=== PATIENT | female | born 1980 | race Caucasian/White ===

== ENCOUNTER → 2019-12-10 | Outpatient (CLI) | payer BC ==
--- NOTE | 2019-12-11 11:54 | MM ---
Reason for exam: screening (asymptomatic). Physical Findings: A clinical breast exam by your physician is recommended on an annual basis and results should be correlated with mammographic findings. MG 3D Screening Mammo W/Cad Bilateral CC and MLO view(s) were taken. The breast tissue is extremely dense which could obscure a lesion on mammography. There is no discrete abnormality. ASSESSMENT: Negative, BI-RAD 1 RECOMMENDATION: Routine screening mammogram of both breasts in 1 year.
== END | disposition home or self-care (01) ==
LOC: RADMAMWWP 10:53
PROVIDERS: ATTEND Obstetrics & Gynecology
DX: Z12.31 Encounter for screening mammogram for malignant neoplasm of breast (principal)
CPT/HCPCS: 77063; 77067

== ENCOUNTER → 2020-12-10 | Outpatient (CLI) | payer BC ==
--- NOTE | 2020-12-14 10:24 | MM ---
Reason for exam: screening (asymptomatic). Last mammogram was performed 1 year ago. Physical Findings: A clinical breast exam by your physician is recommended on an annual basis and results should be correlated with mammographic findings. MG 3D Screening Mammo W/Cad Bilateral CC and MLO view(s) were taken. Prior study comparison: December 10, 2019, bilateral MG 3d screening mammo w/cad. The breast tissue is extremely dense which could obscure a lesion on mammography. No significant changes when compared with prior studies. ASSESSMENT: Negative, BI-RAD 1 RECOMMENDATION: Routine screening mammogram of both breasts in 1 year. Patient should continue monthly self breast exams. A negative report should not preclude additional follow up of suspicious palpable abnormalities.
== END | disposition home or self-care (01) ==
LOC: RADMAMWWP 07:51
PROVIDERS: ATTEND Obstetrics & Gynecology
DX: Z12.31 Encounter for screening mammogram for malignant neoplasm of breast (principal)
CPT/HCPCS: 77063; 77067

== ENCOUNTER → 2021-12-26 | Outpatient (CLI) | payer BC ==
--- NOTE | 2021-12-26 15:52 | BD ---
EXAMINATION TYPE: Axial Bone Density DATE OF EXAM: 12/26/2021 COMPARISON: NONE CLINICAL HISTORY: 41 years year old Female. ICD-10 CODE: Z78.0 MENOPAUSAL STATE postmenopausal femal e Height: 63.5 IN Weight: 120 LBS FRAX RISK QUESTIONS: History of Fracture in Adulthood: RT WRIST AGE 17 RISK FACTORS HISTORY OF: History of Wrist Fracture: RT WRIST AGE 17 Active: YES MEDICATIONS: Additional Medications: TOPOMAX EXAM MEASUREMENTS: Bone mineral densitometry was performed using the [employer] System. Bone mineral density as measured about the Lumbar spine is: ----- L1-L4(G/cm2): 1.053 T Score Values are as follows: ----- L1: -1.4 ----- L2: -1.3 ----- L3: -1.2 ----- L4: -0.6 ----- L1-L4: -1.1 Bone mineral density BASELINE Bone mineral density about the R hip (g/cm2): 0.742 Bone mineral density about the L hip (g/cm2): 0.764 T Score values are as follows: -----R Neck: -2.1 -----L Neck: -2.0 -----R Total: -1.2 -----L Total: -1.3 Bone mineral density BASELINE FRAX%s: The graph provided illustrates a 6.1 chance for a major osteoporotic fx and a 1.5 chance for the hips probability for fx in 10 years time. IMPRESSION: Osteopenia (T Score between -2.5 and -1). There is slightly increased risk of fracture and the patient may be considered for treatment. Re-Screen 2-5 years. NOTE: T-SCORE=SD OF THE YOUNG ADULT MEAN.
--- NOTE | 2021-12-29 10:23 | MM ---
Reason for Exam: Screening (asymptomatic). Last mammogram was performed 1 year(s) and 1 month(s) ago. Patient History: Menarche at age 10. First Full-Term at age 23. Last menstrual period: 12/16/2021 Risk Values: Brenna 5 year model risk: 0.6%. NCI Lifetime model risk: 9.7%. Prior Study Comparison: 12/10/2019 Bilateral Screening Mammogram, [facility]. 12/10/2020 Bilateral Screening Mammogram, [facility]. Tissue Density: The breast tissue is extremely dense which could obscure a lesion on mammography. Findings: Analyzed By CAD. There is no suspicious group of microcalcifications or new suspicious mass in either breast. Overall Assessment: Negative, BI-RAD 1 Management: Screening Mammogram of both breasts in 1 year. A clinical breast exam by your physician is recommended on an annual basis and results should be correlated with mammographic findings. Electronically signed and approved by: Jerome Schuster DO
== END | disposition home or self-care (01) ==
LOC: RADMAMWWP 14:53
PROVIDERS: ATTEND Obstetrics & Gynecology
DX: Z12.31 Encounter for screening mammogram for malignant neoplasm of breast (principal); M85.89 Other specified disorders of bone density and structure, multiple sites; Z78.0 Asymptomatic menopausal state
CPT/HCPCS: 77063; 77067; 77080

== ENCOUNTER → 2022-09-04 | Outpatient (CLI) | payer BC ==
--- NOTE | 2022-09-04 12:53 | CA ---
Transthoracic Echo Report Name: Ave Bray Age: 41 Gender: F : 1980 Exam Date: 09/04/2022 11:31 Exam Location: [facility] Ht (in): 64 Wt (lb): 107 Ordering Physician: Ame Espitia MD Attending/Referring Phys: Ame Espitia MD Welding Estimator Lien Lee RDCS Procedure CPT: Indications: R07.9 R00.2 Cardiac Hx: Technical Quality: Excellent Contrast 1: Total Dose (mL): Contrast 2: Total Dose (mL): MEASUREMENTS (Male / Female) Normal Values 2D ECHO LV Diastolic Diameter PLAX 4.3 cm 4.2 - 5.9 / 3.9 - 5.3 cm LV Systolic Diameter PLAX 2.6 cm IVS Diastolic Thickness 0.9 cm 0.6 - 1.0 / 0.6 - 0.9 cm LVPW Diastolic Thickness 0.9 cm 0.6 - 1.0 / 0.6 - 0.9 cm LV Relative Wall Thickness 0.4 RV Internal Dim ED PLAX 2.5 cm LA Systolic Diameter LX 3.0 cm 3.0 - 4.0 / 2.7 - 3.8 cm LV Diastolic Volume MOD 4C 70.5 cm??? LV Systolic Volume MOD 4C 32.5 cm??? LV Ejection Fraction MOD 4C 53.9 % LV Diastolic Length 4C 7.7 cm LV Systolic Length 4C 6.4 cm LV Diastolic Volume MOD 2C 68.0 cm??? LV Systolic Volume MOD 2C 31.7 cm??? LV Ejection Fraction MOD 2C 53.4 % LV Diastolic Length 2C 6.7 cm LV Systolic Length 2C 5.7 cm LA Volume 42.4 cm??? 18 - 58 / 22 - 52 cm??? M-MODE Aortic Root Diameter MM 3.0 cm MV E Point Septal Separation 0.2 cm AV Cusp Separation MM 2.1 cm DOPPLER AV Peak Velocity 118.0 cm/s AV Peak Gradient 5.6 mmHg MV Area PHT 3.2 cm??? Mitral E Point Velocity 98.2 cm/s Mitral A Point Velocity 42.7 cm/s Mitral E to A Ratio 2.3 MV Deceleration Time 234.3 ms MV E' Velocity 13.0 cm/s Mitral E to MV E' Ratio 7.6 TR Peak Velocity 216.0 cm/s TR Peak Gradient 18.7 mmHg Right Ventricular Systolic Press 23.0 mmHg FINDINGS Left Ventricle Left ventricular ejection fraction is estimated at 55-60Normal left ventricular systolic function with no obvious regional wall motion abnormalities. Left ventricular cavity size normal. Left ventricular wall thickness normal. . Right Ventricle Normal right ventricular size and function. Right ventricular systolic pressure within normal limits. Right Atrium Normal right atrial size. Left Atrium Normal left atrial size. Mitral Valve Structurally normal mitral valve. No mitral stenosis, or prolapse. Trace mitral regurgitation Aortic Valve Trileaflet aortic valve. No aortic valve stenosis or regurgitation. Tricuspid Valve Structurally normal tricuspid valve. Mild tricuspid regurgitation. Pulmonic Valve Structurally normal pulmonic valve. No pulmonic regurgitation. Pericardium Normal pericardium. No pericardial effusion. Aorta Normal size aortic root and proximal ascending aorta. CONCLUSIONS 1. Normal left ventricle size and systolic function 2. Mild tricuspid with trace mitral regurgitation Previewed by: Dr. Izabella Watson MD (Electronically Signed) Final Date: 04 September 2022 12:52
== END | disposition home or self-care (01) ==
LOC: RADECHMAIN 11:19
PROVIDERS: ATTEND Internal Medicine Rheumatology
DX: I08.1 Rheumatic disorders of both mitral and tricuspid valves (principal); R07.9 Chest pain, unspecified; R00.2 Palpitations
CPT/HCPCS: 93306

== ENCOUNTER → 2022-09-12 | Outpatient (CLI) | payer BC ==
--- NOTE | 2022-09-12 08:20 | US ---
EXAMINATION TYPE: US venous doppler duplex LE RT DATE OF EXAM: 09/12/2022 7:54 AM COMPARISON: NONE CLINICAL HISTORY: M79.604 PAIN IN RT LEG. Intermittent pain right leg for 3 weeks SIDE PERFORMED: right TECHNIQUE: The lower extremity deep venous system is examined utilizing real time linear array sonog margaret with graded compression, doppler sonography and color-flow sonography. VESSELS IMAGED: Common Femoral Vein Deep Femoral Vein Greater Saphenous Vein * Femoral Vein Popliteal Vein Small Saphenous Vein * Proximal Calf Veins (* superficial vessels) Right Leg: no evidence of DVT Grayscale, color doppler, spectral doppler imaging performed of the deep veins of the right lower ext remity. There is normal flow, compressibility, vascular waveforms. IMPRESSION: No ultrasound evidence for acute DVT in the right lower extremity.
--- NOTE | 2022-09-12 11:44 | CA ---
Exercise Stress Test Report Name: Ave Bray Exam Date: 09/12/2022 09:00 Exam Location: [facility] Ht (in): 54 Wt (lb): 110 BSA: 1.34 Ordering Phys: Corina De La Torre MD Referring Phys: CORINA DE LA TORRE,, Technologist: Nick Drake Age: 42 Gender: F : 1980 Procedure CPT: Indications: R07.89 chest pain M79.604 ICD-10 Codes: Patient History: Medications: COLCHICINE, MOTRIN Meds past 24 hrs: Pretest Chest Pain: STRESS TEST Tera Protocol Exercise Duration (min:sec): 10:[address] Depressions (mm): Angina Score: Corcoran Score: Resting HR (bpm): 66 Peak HR (bpm): 154 Resting BP (mmHg): 122 / 90 Peak BP (mmHg): 194 / 76 MPHR: 177 Target HR: 150 % MPHR: 87 METS: 13.0 Total Dose: Peak Dose: Atropine: Double Product: 16766 BP Response: Stress Termination: Reached target heart rate Stress Symptoms: NO SYMPTOMS Stress Summary: ECG ANALYSIS Resting ECG: Stress ECG: CONCLUSIONS Patient underwent exercise stress EKG with a Tera protocol treadmill stress test. Patient exercised into Stage 3 for a total of 10 minutes reaching a total of 13 METS. Patient's maximum heart rate was 154 which represented 86 % age-predicted maximum heart rate. Stress EKG findings: At baseline patient's EKG showed normal sinus rhythm, normal axis, no significant ST or T wave abnormalities. At peak exercise, EKG showed no significant change from baseline. Conclusions: 1. Normal EKG response to exercise without evidence of inducible ischemia. 2. Good exercise capacity. Dr. Felice Montez DO (Electronically Signed) Final Date: 12 September 2022 11:43
== END | disposition home or self-care (01) ==
LOC: RADUSWWP 07:26
PROVIDERS: ATTEND Family Medicine
DX: R07.89 Other chest pain (principal); M79.604 Pain in right leg
CPT/HCPCS: 93017

== ENCOUNTER → 2022-10-08 | Outpatient (CLI) | payer BC ==
--- NOTE | 2022-10-08 16:11 | XR ---
EXAMINATION TYPE: XR hand complete RT DATE OF EXAM: 10/08/2022 CLINICAL HISTORY: pain TECHNIQUE: Frontal, lateral and oblique images of the right hand are obtained. COMPARISON: None. FINDINGS: There is no acute fracture/dislocation evident. The joint spaces appear within normal limi ts. The overlying soft tissue appears unremarkable. IMPRESSION: There is no acute fracture or dislocation ICD 10 NO FRACTURE, INITIAL EVALUATION
== END | disposition home or self-care (01) ==
LOC: RADXRMAIN 15:21
PROVIDERS: ATTEND Family Medicine
DX: M79.641 Pain in right hand (principal)

== ENCOUNTER → 2023-01-02 | Outpatient (CLI) | payer BC ==
--- NOTE | 2023-01-02 19:04 | US ---
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 area measured 12mm l ast time EXAM MEASUREMENTS: Right Kidney: 10.2x4.2x5.4cm Left Kidney: 9.7x4.5x4.9cm No hydronephrosis on either side. Right Kidney: wnl Left Kidney: hyperechoic are noted lateral mid kidney measurin.2x0.9x0.9cm Bladder: wnl Bilateral Jets seen: Yes IMPRESSION: 1. No hydronephrosis. 2. An echogenic cortical lesion measuring 1.2 cm mid left kidney. Correlate with measurements on aarti ent's outside priors. Ongoing surveillance follow-up to be performed.
== END | disposition home or self-care (01) ==
LOC: RADUSWWP 15:13
PROVIDERS: ATTEND Urology
DX: D41.02 Neoplasm of uncertain behavior of left kidney (principal); N28.89 Other specified disorders of kidney and ureter
CPT/HCPCS: 76770

== ENCOUNTER → 2023-02-20 | Outpatient (CLI) | payer BC ==
--- NOTE | 2023-02-21 07:51 | XR ---
EXAMINATION TYPE: XR KUB DATE OF EXAM: 02/20/2023 COMPARISON: None HISTORY: Pain on left side TECHNIQUE: Abdomen is examined in the upright view. FINDINGS: Nonspecific bowel gas appears to be present within the pelvis. Psoas margins are normal. Or ganomegaly is not evident. Spina bifida occulta L5 is present. IMPRESSION: 1. Nonspecific bowel gas pattern.
== END | disposition home or self-care (01) ==
LOC: RADXRMAIN 16:08
PROVIDERS: ATTEND Urology
DX: N20.0 Calculus of kidney (principal)
CPT/HCPCS: 74018

== ENCOUNTER → 2023-03-08 | Outpatient (CLI) | payer BC ==
--- NOTE | 2023-03-09 08:20 | CT ---
EXAMINATION TYPE: CT urogram wo/w con DATE OF EXAM: 03/08/2023 COMPARISON: Hematuria HISTORY: Hematuria, bilateral flank pain, increased urinary frequency. CT DLP: 966.1 mGycm Automated exposure control for dose reduction was used. CONTRAST: Performed with IV Contrast, patient injected with 100 ml mL of Isovue 370. FINDINGS: Liver and spleen are homogeneous. Findings are suggestive previous cholecystectomy with mild intrahep atic biliary central dilation. Adrenal glands are limited in evaluation. Evaluation of pancreas is li mited by lack of intraperitoneal fat. The bladder distends normally with no filling defects. Ureters are segmentally demonstrated normal co urse and caliber. There is no hydronephrosis. There is no nephrolithiasis. Small hypodensity too smal l to characterize within the left kidney. Bowel gas pattern is nonspecific obstruction. There is degenerative change in spine. IMPRESSION: 1. NO EVIDENCE OF HYDRONEPHROSIS OR NEPHROLITHIASIS. HYPODENSITY WITHIN THE LEFT KIDNEY IS TOO SMALL TO CHARACTERIZE BUT LIKELY RELATED TO SIMPLE BOSNIAK CLASSIFICATION 1 RENAL CYST.
== END | disposition home or self-care (01) ==
LOC: RADCTMAIN 14:56
PROVIDERS: ATTEND Urology
DX: R31.1 Benign essential microscopic hematuria (principal); R35.0 Frequency of micturition; R93.429 Abnormal radiologic findings on diagnostic imaging of unspecified kidney; R10.9 Unspecified abdominal pain
CPT/HCPCS: 74178; 74400; Q9967

== ENCOUNTER → 2023-09-26 | Outpatient (CLI) | payer BC ==
--- NOTE | 2023-09-26 14:31 | NM ---
EXAMINATION TYPE: NM gastric emptying static DATE OF EXAM: 09/26/2023 COMPARISON: NONE CLINICAL INDICATION: Female, 43 years old with history of R11.0 NAUSEA; Following administration of 1.8 mCi Tc 99m Sulfur Colloid with 4 ounces eggs, 1 piece of toast with b utter and jelly, & 8 ounces of water, projection images of the abdomen were obtained 12 minutes post ingestion. Patient Emptying Values 1 Hour 24 % 2 Hours 59 % 3 Hours 91 % 4 Hours 99 % Gastroesophagel reflux: None IMPRESSION: Gastric emptying: Normal Gastroesophageal reflux: None Gastric emptying normal percentage values: 30 minutes: <70% of retention (> 30% emptying) suggests abnormally fast emptying. 60 minutes: <90% retention (>10% emptying) is normal; less than 30% retention (>70% emptying) suggest s abnormally rapid emptying. 90 minutes: <65% retention (> 35% emptying) is normal. 120 minutes: <60% retention (> 40% emptying) is normal. 180 minutes: <30% retention (> 70% emptying) is normal. Gastric emptying T-1/2: Solid: The normal range is 60-105 minutes Liquid only: Normal range is 10-45 minutes. Liquid only-children: At 60 minutes, normal range is 44-58 % . Liquid only-infants: At 60 minutes, normal range is 32-64 %. Additional references: Gastric Emptying Scintigraphy [email or web address]://[email or web address]
== END | disposition home or self-care (01) ==
LOC: RADNMMAIN 06:54
PROVIDERS: ATTEND Internal Medicine Gastroenterology
DX: R11.0 Nausea (principal)
CPT/HCPCS: 78264; A9541

== ENCOUNTER → 2023-12-03 | Outpatient (CLI) | payer BC ==
--- NOTE | 2023-12-03 13:01 | CA ---
Transthoracic Echo Report Name: Ave Bray Age: 43 Gender: F : 1980 Exam Date: 12/03/2023 11:29 Exam Location: [facility] Ht (in): 64 Wt (lb): 114 Ordering Physician: Sarbjit Lo MD Attending/Referring Phys: Sarbjit Lo MD Special Education Itinerant Teacher Cherelle Riley RDCS Procedure CPT: Indications: R06.02 SHORT OF BREATH Cardiac Hx: Technical Quality: Good Contrast 1: Total Dose (mL): Contrast 2: Total Dose (mL): MEASUREMENTS (Male / Female) Normal Values 2D ECHO LV Diastolic Diameter PLAX 4.6 cm 4.2 - 5.9 / 3.9 - 5.3 cm LV Systolic Diameter PLAX 3.1 cm IVS Diastolic Thickness 0.7 cm 0.6 - 1.0 / 0.6 - 0.9 cm LVPW Diastolic Thickness 0.8 cm 0.6 - 1.0 / 0.6 - 0.9 cm LV Relative Wall Thickness 0.3 RV Internal Dim ED PLAX 2.6 cm LVOT Diameter 2.0 cm LV Diastolic Volume MOD BP 107.9 cm??? 67 - 155 / 56 - 104 cm??? LV Systolic Volume MOD BP 39.9 cm??? 22 - 58 / 19 - 49 cm??? LV Ejection Fraction MOD BP 63.0 % >= 55 % LV Cardiac Index MOD BP 2990.0 cm???/min???m??? LV Diastolic Volume MOD 4C 104.4 cm??? LV Systolic Volume MOD 4C 39.9 cm??? LV Ejection Fraction MOD 4C 61.8 % LV Cardiac Index MOD 4C 2839.1 cm???/min???m??? LV Diastolic Length 4C 8.2 cm LV Systolic Length 4C 6.4 cm LV Diastolic Volume MOD 2C 108.8 cm??? LV Systolic Volume MOD 2C 39.4 cm??? LV Ejection Fraction MOD 2C 63.8 % LV Cardiac Index MOD 2C 3048.6 cm???/min???m??? LV Diastolic Length 2C 8.0 cm LV Systolic Length 2C 6.6 cm LA Volume 34.7 cm??? 18 - 58 / 22 - 52 cm??? LA Volume Index 22.8 cm???/m??? 16 - 28 cm???/m??? Ascending Aorta Diameter 2.8 cm DOPPLER AV Peak Velocity 128.8 cm/s AV Peak Gradient 6.6 mmHg AV Mean Velocity 89.3 cm/s AV Mean Gradient 3.6 mmHg AV Velocity Time Integral 26.4 cm LVOT Peak Velocity 83.0 cm/s LVOT Peak Gradient 2.8 mmHg LVOT Velocity Time Integral 16.8 cm LVOT Stroke Volume 50.7 cm??? LVOT Stroke Volume Index 32.9 ml/m??? LVOT Cardiac Index 2228.6 cm???/min???m??? AV Area Cont Eq vti 1.9 cm??? AV Area Cont Eq pk 1.9 cm??? MV Area PHT 4.3 cm??? Mitral E Point Velocity 67.8 cm/s Mitral A Point Velocity 40.2 cm/s Mitral E to A Ratio 1.7 MV Deceleration Time 176.0 ms TR Peak Velocity 200.6 cm/s TR Peak Gradient 16.1 mmHg Right Atrial Pressure 5.0 mmHg Pulmonary Artery Systolic Pressu 21.1 mmHg Right Ventricular Systolic Press 21.1 mmHg PV Peak Velocity 84.5 cm/s PV Peak Gradient 2.9 mmHg FINDINGS Left Ventricle Left ventricular ejection fraction is estimated at 60-65 %. Mildly increased left ventricular diastolic volume. Left ventricular wall thickness normal. No obvious regional wall motion abnormalities. Right Ventricle Normal right ventricular size and function. Right ventricular systolic pressure within normal limits. Right Atrium Normal right atrial size. Left Atrium Normal left atrial size. Mitral Valve Structurally normal mitral valve. No evidence for mitral valve prolapse. No mitral stenosis. Trace mitral regurgitation. Aortic Valve Trileaflet aortic valve. No aortic valve stenosis or regurgitation. Tricuspid Valve Structurally normal tricuspid valve. No tricuspid stenosis. Trace tricuspid regurgitation. Pulmonic Valve Structurally normal pulmonic valve. No pulmonic stenosis. Trace pulmonic regurgitation. Pericardium No pericardial effusion. Aorta Normal size aortic root and proximal ascending aorta. CONCLUSIONS Normal biventricular dimension and systolic function No significant valvular abnormalities noted No evidence of pericardial effusion Normal aortic root and proximal ascending aorta Normal pulmonary artery systolic pressure Previewed by: Dr. Christ Paula MD (Electronically Signed) Final Date: 03 December 2023 13:00
== END | disposition home or self-care (01) ==
LOC: RADECHMAIN 11:23
PROVIDERS: ATTEND Internal Medicine Sleep Medicine
DX: R06.02 Shortness of breath (principal); I27.20 Pulmonary hypertension, unspecified; I50.9 Heart failure, unspecified
CPT/HCPCS: 93306

== ENCOUNTER → 2024-03-10 | Outpatient (CLI) | payer BC ==
--- NOTE | 2024-03-13 08:20 | MM ---
Reason for Exam: Screening (asymptomatic). Last screening mammogram was performed 12 month(s) ago. Patient History: Menarche at age 10. First Full-Term at age 23. Hysterectomy at age 41. Patient has history of breast feeding. Currently using Progesterone, for 6 months. Risk Values: Brenna 5 year model risk: 0.8%. NCI Lifetime model risk: 9.5%. Prior Study Comparison: 12/10/2020 Bilateral Screening Mammogram, [facility]. 12/26/2021 Bilateral MG 3D screening mammo w/cad, [facility]. 03/09/2023 Bilateral MG 3D screening mammo w/cad, [facility]. Tissue Density: The breasts are extremely dense, which lowers the sensitivity of mammography. Findings: Analyzed By CAD. There is no suspicious group of microcalcifications or new suspicious mass in either breast. Stable benign-appearing lymph node in the right axilla. Punctate benign calcifications. Overall Assessment: Benign, BI-RAD 2 Management: Screening Mammogram of both breasts in 1 year. . Patient should continue monthly self-breast exams. A clinical breast exam by your physician is recommended on an annual basis. This exam should not preclude additional follow-up of suspicious palpable abnormalities. Note on Brenna scores and lifetime risk: 1. A Brenna score greater than 3% is considered moderate risk. If this is the case, consider specialist referral to assess eligibility for a risk reducing agent. 2. If overall lifetime risk for the development of breast cancer is 20% or higher, the patient may qualify for future screening with alternating mammogram and breast MRI. [facility], , 03/13/2024 8:17 AM. Electronically signed and approved by: Martell Awad M.D. Radiologis
--- NOTE | 2024-03-17 21:22 | BD ---
EXAMINATION TYPE: Axial Bone Density DATE OF EXAM: 03/10/2024 CLINICAL HISTORY: 43 years old Female. ICD-10 CODE: M85.80 DISORDER OF BONE DENSITY Height: 64 Weight: 112 FRAX RISK QUESTIONS: Alcohol (3 or more units per day): no Family History (Parent hip fracture): no Glucocorticoids (More than 3mos): no (Ex: prednisone, prednisolone, methylprednisolone, dexamethasone, and hydrocortisone). History of Fracture in Adulthood: yes Secondary Osteoporosis: 1. Type 1 Diabetes: no 2. Hyperthyroidism: no 3. Menopause before 45: yes 4. Malnutrition: no 5. Chronic liver disease: no Rheumatoid Arthritis: no Current Tobacco Use: no RISK FACTORS HISTORY OF: History of Wrist Fracture: Right Surgery to Spine/Hip(right/left)/Wrist (right/left): no EXAM MEASUREMENTS: Bone mineral densitometry was performed using the [employer]. Bone mineral density as measured about the Lumbar spine is: ----- L1-L4(G/cm2): 1.032 T Score Values are as follows: ----- L1: -1.9 ----- L2: -1.1 ----- L3: -1.2 ----- L4: -0.9 ----- L1-L4: -1.2 Z Score Values are as follows: ----- L1: -1.4 ----- L2: -0.7 ----- L3: -0.8 ----- L4: -0.4 ----- L1-L4: -0.8 Bone mineral density has: decreased -2.0 % since study of: 12.26.2021 Bone mineral density about the R hip (g/cm2): 0.876 Bone mineral density about the L hip (g/cm2): 0.798 T Score values are as follows: -----R Neck: -1.9 -----L Neck: -2.3 -----R Total: -1.0 -----L Total: -1.7 Z Score values are as follows: -----R Neck: -1.0 -----L Neck: -1.4 -----R Total: -0.4 -----L Total: -1.0 Bone mineral density has: decreased -1.2 % since study of: 7.11.2021 FRAX%s: The graph provided illustrates a 6.9% chance for a major osteoporotic fx and a 1.9% chance fo r the hips probability for fx in 10 years time. IMPRESSION: Osteopenia (T Score between -2.5 and -1). There is slightly increased risk of fracture and the patient may be considered for treatment. Re-Screen 2-5 years. NOTE: T-SCORE=SD OF THE YOUNG ADULT MEAN. [facility], , 03/17/2024 9:20 PM
== END | disposition home or self-care (01) ==
LOC: RADMAMWWP 09:00
PROVIDERS: ATTEND Family Medicine
DX: Z12.31 Encounter for screening mammogram for malignant neoplasm of breast (principal); M85.89 Other specified disorders of bone density and structure, multiple sites; Z78.0 Asymptomatic menopausal state
CPT/HCPCS: 77063; 77067; 77080